=== PATIENT | female | born 1955 | race Caucasian/White ===

== ENCOUNTER 2017-09-01 11:47 | Day surgery (SDC) | payer BC ==
[2017-09-01] MEDS ORDERED: FENTAnyl 50 MCG/ML VIAL (13:41)
[2017-09-01] MEDS ORDERED: MIDAZOLAM 1 MG/ML 2 ML INJ ×3 (13:41)
== END 2017-09-01 16:10 | disposition home or self-care (01) ==
LOC: GIL 11:47
DX: R19.4 Change in bowel habit (principal); K29.50 Unspecified chronic gastritis without bleeding; K64.8 Other hemorrhoids; K21.9 Gastro-esophageal reflux disease without esophagitis
CPT/HCPCS: 43239; 88305; 88312